=== PATIENT | male | born 1945 | race Caucasian/White ===

== ENCOUNTER 2016-06-08 05:25 | Inpatient (IN) | payer MEDICARE ==
[~2016-06-08] VITALS: Ht 170.2 cm; Wt 124.6 kg
[2016-06-08] VITALS (14 sets, daily range): BP systolic 105–135; BP diastolic 57–76; PULSE 84–133; RESP 18–36; TEMP 98.4–100.8; O2SAT 88–99
[2016-06-08] MEDS ORDERED: AZITHROMYCIN INJ 500 MG in SODIUM CHLOR 0.9% 250 ML INJ 250 ML IV STA (05:37)
[2016-06-08] MEDS ORDERED: SODIUM CHLOR 0.9% 1000 ML INJ 1,000 ML IV ONE ×2 (05:37)
[2016-06-08] MEDS ORDERED: cefTRIAXone INJ 2,000 MG in SODIUM CHLORIDE 0.9% INJ 100 ML IV STA (05:37)
[2016-06-08] MEDS ORDERED: SODIUM CHLOR 0.9% 1000 ML INJ 400 ML IV ONE (05:37)
[2016-06-08] MEDS ORDERED: methylPREDNISolone SOD SUCC 125 MG/2 ML VIAL IV ONE (05:45)
--- NOTE | 2016-06-08 05:47 | PD ---
HPI Chief Complaint: Respiratory Distress Time Seen by Provider: 05:37 Travel History International Travel<30 days: No Contact w/Intl Traveler<30days: No Traveled to known affect area: No History of Present Illness HPI Patient is a 71-year-old male with history of hyperlipidemia who presents to emergency room with complaints of shortness of breath with cough and congestion. Patient reports that he woke up 3 hours prior to arrival to the emergency room and felt short of breath. Patient reports that he began coughing and has been coughing up blood-tinged sputum. Patient reports "I think I have pneumonia." Patient reports that he used the past smoker, has not smoked in many years. Patient denies chest pain at this time. 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 Patient reports that he has been having increased fevers and chills for the past few hours. Patient reports that he was diagnosed with the flu 2 weeks ago, reports that he doesn't think he really got over it. PFSH Past Medical History Medical History: Denies Significant Hx Cardiac Catheterization: Yes Diminished Hearing: No Tetanus Vaccination: Unknown Influenza Vaccination: No Social History Alcohol Use: No Tobacco Use: No Substance Use: No Allergies-Medications (Allergen,Severity, Reaction): Coded Allergies: No Known Allergies (Unverified , 06/08/16) Reported Meds & Prescriptions Reported Meds & Active Scripts Active Active Prescriptions or Reported Medications Unobtainable Review of Systems General / Constitutional: Positive: Fever, Chills Eyes: No: Visual changes HENT: No: Headaches Cardiovascular: No: Chest Pain or Discomfort Respiratory: Positive: Cough, Shortness of Breath, Wheezing Gastrointestinal: No: Nausea, Abdominal Pain Genitourinary: No: Dysuria Musculoskeletal: No: Pain Skin: No Rash Neurologic: No: Weakness Psychiatric: No: Depression Endocrine: No: Polydipsia Hematologic/Lymphatic: No: Easy Bruising Physical Exam Narrative GENERAL: Moderate distress, patient hypoxic with a pulse ox of 88% on room air SKIN: Warm and dry. HEAD: Atraumatic. Normocephalic. EYES: Pupils equal and round. No scleral icterus. No injection or drainage. ENT: No nasal bleeding or discharge. Mucous membranes pink and moist. NECK: Trachea midline. No JVD. CARDIOVASCULAR: Tachycardic. No murmur appreciated. RESPIRATORY: Patient with scattered wheezing bilaterally GASTROINTESTINAL: Abdomen soft, non-tender, nondistended. Hepatic and splenic margins not palpable. MUSCULOSKELETAL: No obvious deformities. No clubbing. No cyanosis. No edema. NEUROLOGICAL: Awake and alert. No obvious cranial nerve deficits. Motor grossly within normal limits. Normal speech. PSYCHIATRIC: Patient anxious on exam Data Data Last Documented VS Vital Signs Date Time Temp Pulse Resp B/P Pulse Ox O2 Delivery O2 Flow Rate FiO2 06/08/16 06:37 123 26 120/74 95 Nasal Cannula 2 06/08/16 05:31 100.8 Orders Electrocardiogram (06/08/16 05:37) Complete Blood Count With Diff (06/08/16 05:37) Comprehensive Metabolic Panel (06/08/16 05:37) Prothrombin Time / Inr (Pt) (06/08/16 05:37) Act Partial Throm Time (Ptt) (06/08/16 05:37) Lactic Acid Sepsis Protocol (06/08/16 05:37) Magnesium (Mg) (06/08/16 05:37) Ckmb (Isoenzyme) Profile (06/08/16 05:37) Troponin I (06/08/16 05:37) Urinalysis - C+S If Indicated (06/08/16 05:37) Influenzae A/B Antigen (06/08/16 05:37) Blood Culture (06/08/16 05:37) Chest, Single Ap (06/08/16 05:37) Blood Glucose (06/08/16 05:37) Ecg Monitoring (06/08/16 05:37) Iv Access Insert/Monitor (06/08/16 05:37) Oximetry (06/08/16 05:37) Oxygen Administration (06/08/16 05:37) Ceftriaxone Inj (Rocephin Inj) (06/08/16 05:37) Azithromycin Inj (Zithromax Inj) (06/08/16 05:37) Albuterol-Ipratropium Neb (Duoneb Neb) (06/08/16 05:45) Methylprednisolone So Succ Inj (Solumedr (06/08/16 05:45) Sodium Chlor 0.9% 1000 Ml Inj (Ns 1000 M (06/08/16 05:37) Sodium Chlor 0.9% 1000 Ml Inj (Ns 1000 M (06/08/16 05:37) Sodium Chlor 0.9% 1000 Ml Inj (Ns 1000 M (06/08/16 05:37) Arterial Blood Gas (Abg) (06/08/16 ) Acetaminophen (Tylenol) (06/08/16 06:00) B-Type Natriuretic Peptide (06/08/16 05:55) CKMB (06/08/16 05:49) CKMB% (06/08/16 05:49) Ct Pulmonary Angiogram (06/08/16 06:27) Labs Laboratory Tests Test 06/08/16 06/08/16 05:49 06:01 White Blood Count 3.6 TH/MM3 Red Blood Count 4.49 MIL/MM3 Hemoglobin 14.9 GM/DL Hematocrit 41.4 % Mean Corpuscular Volume 92.2 FL Mean Corpuscular Hemoglobin 33.1 PG Mean Corpuscular Hemoglobin 35.9 % Concent Red Cell Distribution Width 13.9 % Platelet Count 267 TH/MM3 Mean Platelet Volume 8.4 FL Neutrophils (%) (Auto) 89.1 % Lymphocytes (%) (Auto) 8.2 % Monocytes (%) (Auto) 1.5 % Eosinophils (%) (Auto) 0.5 % Basophils (%) (Auto) 0.7 % Neutrophils # (Auto) 3.2 TH/MM3 Lymphocytes # (Auto) 0.3 TH/MM3 Monocytes # (Auto) 0.1 TH/MM3 Eosinophils # (Auto) 0.0 TH/MM3 Basophils # (Auto) 0.0 TH/MM3 CBC Comment DIFF FINAL Differential Comment Prothrombin Time 11.6 SEC Prothromb Time International 1.0 RATIO Ratio Activated Partial 23.1 SEC Thromboplast Time Sodium Level 140 MEQ/L Potassium Level 3.9 MEQ/L Chloride Level 102 MEQ/L Carbon Dioxide Level 30.8 MEQ/L Anion Gap 7 MEQ/L Blood Urea Nitrogen 14 MG/DL Creatinine 0.98 MG/DL Estimat Glomerular Filtration 75 ML/MIN Rate Random Glucose 178 MG/DL Lactic Acid Level 1.2 mmol/L Calcium Level 8.6 MG/DL Magnesium Level 1.8 MG/DL Total Bilirubin 0.6 MG/DL Aspartate Amino Transf 19 U/L (AST/SGOT) Alanine Aminotransferase 23 U/L (ALT/SGPT) Alkaline Phosphatase 82 U/L Total Creatine Kinase 108 U/L Creatine Kinase MB 1.1 NG/ML Troponin I LESS THAN 0.02 NG/ML Total Protein 7.5 GM/DL Albumin 3.7 GM/DL Blood Gas Puncture Site RT RADIAL Blood Gas Patient Temperature 98.6 Blood Gas HCO3 25 mmol/L Blood Gas Base Excess 1.4 mmol/L Blood Gas Oxygen Saturation 92 % Arterial Blood pH 7.43 Arterial Blood Partial 39 mmHg Pressure CO2 Arterial Blood Partial 63 mmHG Pressure O2 Arterial Blood Oxygen Content 16.1 Vol % Arterial Blood 1.1 % Carboxyhemoglobin Arterial Blood Methemoglobin 0.6 % Blood Gas Hemoglobin 12.5 G/DL Oxygen Delivery Device ROOM AIR Blood Gas Inspired Oxygen 21 % MDM Medical Decision Making Medical Screen Exam Complete: Yes Emergency Medical Condition: Yes Interpretation(s) EKG at 0535: Sinus tachycardia at 129 beats a minute, QT/QTc 281/357 Vital Signs Date Time Temp Pulse Resp B/P Pulse Ox O2 Delivery O2 Flow Rate FiO2 06/08/16 05:36 128 36 88 Room Air 06/08/16 05:31 100.8 133 36 132/71 88 06/08/16 05:27 99.9 132 20 130/67 88 Differential Diagnosis COPD exacerbation, pneumonia, influenza, ACS, arrhythmia, pneumothorax Narrative Course Patient is a 71-year-old male who presents to emergency room with complaints of cough, congestion, fevers and chills for the past 3 hours. On exam, patient is hypoxic with a pulse ox of 88% on room air. Patient has increased respiratory as well as tachycardia and is febrile. Patient does have SIRS criteria. Patient has been pancultured, will give dose of Rocephin as well as azithromycin as I do think that source of infection is his lungs. Patient was given a 30 cc/kg bolus of fluids. Patient does have scattered wheezing, patient was given IV steroids as well as neb treatments. We'll continue to monitor patient. Critical Care Narrative Aggregate critical care time was 30 minutes. Time to perform other separately billable procedures was not included in the critical care time. My time did not include minutes spent treating any other patients simultaneously or on activities that did not directly contribute to the patient's treatment. The services I provided to this patient were to treat and/or prevent clinically significant deterioration that could result in: , decompensation, deterioration I provided critical care services requiring my management, as noted below: Chart data review, documentation time, medication orders and management, vital sign assessments/reviewing monitor data, ordering and reviewing lab tests, ordering and interpreting/reviewing x-rays and diagnostic studies, care of the patient and discussion of the patient with the admitting physicians. Sepsis Criteria SIRS Criteria (2 or more): Temp > 100.9 or < 96.8, Heart rate over 90, RR > 20 or PaCO2 < 32 Sepsis Criteria (SIRS+source): Infect source susp/known Diagnosis Primary Impression: Hypoxia Additional Impressions: Pneumonia Qualified Code: J18.1 - Pneumonia of right middle lobe due to infectious organism SIRS (systemic inflammatory response syndrome) Admitting Information Admitting Physician Requests: Admit Scripts Unable to Obtain Active Prescriptions or Reported Meds Dayna Matthew DO Jun 08, 2016 05:47
[2016-06-08] MEDS: RESP: ALBUTEROL 2.5 MG/IPRATROPIUM 0.5 MG NEB (SCH) INH (05:48)
[2016-06-08] MEDS ORDERED: ACETAMINOPHEN 325 MG TAB PO ONE (06:00)
[2016-06-08 06:01] LABS: AUTOMATED NEUTROPHIL # 3.2 TH/MM3 (1.8-7.7); BASOPHIL % 0.7 % (0.0-2.0); EOSINOPHIL % 0.5 % (0.0-4.0); HEMATOCRIT 41.4 % (39.0-51.0); HEMO FLAGS DIFF FINAL; LYMPH % 8.2 % (9.0-44.0); LYMPHOCYTE # 0.3 TH/MM3 (1.0-4.8); MEAN CELL VOLUME 92.2 FL (80.0-100.0); MEAN CORPUSCULAR HEMOGLOBIN 33.1 PG (27.0-34.0); MEAN CORPUSCULAR HGB CONC 35.9 % (32.0-36.0); MONO % 1.5 % (0.0-8.0); NEUT % 89.1 % (16.0-70.0); PLATELET COUNT 267 TH/MM3 (150-450); RED BLOOD COUNT 4.49 MIL/MM3 (4.50-5.90); RED CELL DISTRIBUTION WIDTH 13.9 % (11.6-17.2); WHITE BLOOD COUNT 3.6 TH/MM3 (4.0-11.0)
[2016-06-08 06:13] LABS: APTT (PATIENT) 23.1 SEC (24.3-30.1); PROTHROMBIN TIME - PATIENT 11.6 SEC (9.8-11.6)
[2016-06-08 06:18] LABS: BLOOD GAS BASE EXCESS 1.4 mmol/L (-2-2); BLOOD GAS CARBOXYHEMOGLOBIN 1.1 % (0-4); BLOOD GAS HCO3 25 mmol/L (22-26); BLOOD GAS METHEMOGLOBIN 0.6 % (0-2); BLOOD GAS O2 HGB SATURATION 92 % (90-100); BLOOD GAS OXYGEN CONTENT 16.1 Vol % (12.0-20.0); BLOOD GAS PCO2 39 mmHg (38-42); BLOOD GAS PO2 63 mmHG (61-120); BLOOD GAS TOTAL HGB 12.5 G/DL (12.0-16.0); CRITICAL VALUE NO; DRAW SITE RT RADIAL; FIO2 21 %; NUMBER OF ARTERIAL PUNCTURES 2; OXYGEN DEVICE ROOM AIR; STAT YES; TEMP CORR TO 98.6; ULNAR PULSE PRESENT
[2016-06-08 06:20] LABS: ANION GAP 7 MEQ/L (5-15); AST (GOT) 19 U/L (15-37); BICARBONATE 30.8 MEQ/L (21.0-32.0); BLOOD UREA NITROGEN 14 MG/DL (7-18); CHLORIDE 102 MEQ/L (98-107); GLOMERULAR FILTRATION RATE 75 ML/MIN (>89); MAGNESIUM 1.8 MG/DL (1.5-2.5); POTASSIUM 3.9 MEQ/L (3.5-5.1); SODIUM (NA) 140 MEQ/L (136-145)
[2016-06-08 06:24] LABS: ALKALINE PHOSPHATASE 82 U/L (45-117); ALT (GPT) 23 U/L (12-78); CREATINE KINASE 108 U/L (39-308); TOTAL BILIRUBIN ADULT 0.6 MG/DL (0.2-1.0)
--- NOTE | 2016-06-08 06:42 | RADRPT ---
EXAM DATE/TIME: 06/08/2016 06:30 [facility] COMPARISON: No previous studies available for comparison. INDICATIONS : Shortness of breath. MEDICAL HISTORY : None. SURGICAL HISTORY : None. ENCOUNTER: Initial ACUITY: 1 day PAIN SCORE: 0/10 LOCATION: Bilateral chest FINDINGS: Single AP view of the chest. Large area of pulmonary consolidation in the mid to upper lung zone on t he right. Left lung clear. Cardiomediastinal silhouette within normal limits. No evidence of pleural effusion or pneumothorax. CONCLUSION: Large area of right mid to upper lung consolidation. Stuart Santos MD on June 08, 2016 at 6:39 Board Certified Radiologist. This report was verified electronically.
[2016-06-08 06:50] LABS: CKMB 1.1 NG/ML (0.5-3.6)
[2016-06-08] MEDS ORDERED: IOHEXOL 350 MG/ML 10 ML VIAL (for RAD DIAG) IV ONE (06:57)
--- NOTE | 2016-06-08 07:09 | PD ---
Physical Exam Date Seen by Provider: Jun 08, 2016 Time Seen by Provider: 07:07 Narrative The patient is a 71-year-old male who presents to the emergency department for shortness of breath, was evaluated by the previous physician. Please refer to the initial history, physical, diagnostic evaluation, and treatment modality plan. The patient was signed out at [address] the chest and laboratory evaluation pending. The patient was noted to be febrile with what appeared to be a consolidated area on the chest x-ray, right lung. The patient was administered Rocephin and Zithromax by the previous physician. The patient was noted to be hypoxic and febrile. Data Data Last Documented VS Vital Signs Date Time Temp Pulse Resp B/P Pulse Ox O2 Delivery O2 Flow Rate FiO2 06/08/16 06:37 123 26 120/74 95 Nasal Cannula 2 06/08/16 05:31 100.8 Orders Electrocardiogram (06/08/16 05:37) Complete Blood Count With Diff (06/08/16 05:37) Comprehensive Metabolic Panel (06/08/16 05:37) Prothrombin Time / Inr (Pt) (06/08/16 05:37) Act Partial Throm Time (Ptt) (06/08/16 05:37) Lactic Acid Sepsis Protocol (06/08/16 05:37) Magnesium (Mg) (06/08/16 05:37) Ckmb (Isoenzyme) Profile (06/08/16 05:37) Troponin I (06/08/16 05:37) Urinalysis - C+S If Indicated (06/08/16 05:37) Influenzae A/B Antigen (06/08/16 05:37) Blood Culture (06/08/16 05:37) Chest, Single Ap (06/08/16 05:37) Blood Glucose (06/08/16 05:37) Ecg Monitoring (06/08/16 05:37) Iv Access Insert/Monitor (06/08/16 05:37) Oximetry (06/08/16 05:37) Oxygen Administration (06/08/16 05:37) Ceftriaxone Inj (Rocephin Inj) (06/08/16 05:37) Azithromycin Inj (Zithromax Inj) (06/08/16 05:37) Albuterol-Ipratropium Neb (Duoneb Neb) (06/08/16 05:45) Methylprednisolone So Succ Inj (Solumedr (06/08/16 05:45) Sodium Chlor 0.9% 1000 Ml Inj (Ns 1000 M (06/08/16 05:37) Sodium Chlor 0.9% 1000 Ml Inj (Ns 1000 M (06/08/16 05:37) Sodium Chlor 0.9% 1000 Ml Inj (Ns 1000 M (06/08/16 05:37) Arterial Blood Gas (Abg) (06/08/16 ) Acetaminophen (Tylenol) (06/08/16 06:00) B-Type Natriuretic Peptide (06/08/16 05:55) CKMB (06/08/16 05:49) CKMB% (06/08/16 05:49) Ct Pulmonary Angiogram (06/08/16 06:27) Iohexol 350 Inj (Omnipaque 350 Inj) (06/08/16 06:57) Admit To Inpatient (06/08/16 ) Vital Signs (Adult) Q4H (06/08/16 07:33) Activity Oob Ad Courtney (06/08/16 07:33) 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 .CONTINUOUS (06/08/16 07:33) Intake + Output YISEL.QSHIFT (06/08/16 07:33) Diet Heart Healthy (06/08/16 Breakfast) Sodium Chlor 0.9% 1000 Ml Inj (Ns 1000 M (06/08/16 07:33) Sodium Chloride 0.9% Flush (Ns Flush) (06/08/16 07:45) Sodium Chloride 0.9% Flush (Ns Flush) (06/08/16 09:00) Acetaminophen (Tylenol) (06/08/16 07:45) Ondansetron Inj (Zofran Inj) (06/08/16 07:45) Magnesium Hydroxide Liq (Milk Of Magnesi (06/08/16 07:45) Resp Oxygen Liam C Titrat 1-4 L (06/08/16 ) Enoxaparin Inj (Lovenox Inj) (06/08/16 07:45) Naloxone Inj (Narcan Inj) (06/08/16 07:45) Inpatient Certification (06/08/16 ) Ceftriaxone Inj (Rocephin Inj) (06/09/16 06:00) Azithromycin Inj (Zithromax Inj) (06/09/16 06:00) Albuterol-Ipratropium Neb (Duoneb Neb) (06/08/16 08:00) Albuterol Neb (Albuterol Neb) (06/08/16 07:45) Methylprednisolone So Succ Inj (Solumedr (06/08/16 12:00) Admit Order (Ed Use Only) (06/08/16 07:40) Labs Laboratory Tests Test 06/08/16 06/08/16 05:49 06:01 White Blood Count 3.6 TH/MM3 Red Blood Count 4.49 MIL/MM3 Hemoglobin 14.9 GM/DL Hematocrit 41.4 % Mean Corpuscular Volume 92.2 FL Mean Corpuscular Hemoglobin 33.1 PG Mean Corpuscular Hemoglobin 35.9 % Concent Red Cell Distribution Width 13.9 % Platelet Count 267 TH/MM3 Mean Platelet Volume 8.4 FL Neutrophils (%) (Auto) 89.1 % Lymphocytes (%) (Auto) 8.2 % Monocytes (%) (Auto) 1.5 % Eosinophils (%) (Auto) 0.5 % Basophils (%) (Auto) 0.7 % Neutrophils # (Auto) 3.2 TH/MM3 Lymphocytes # (Auto) 0.3 TH/MM3 Monocytes # (Auto) 0.1 TH/MM3 Eosinophils # (Auto) 0.0 TH/MM3 Basophils # (Auto) 0.0 TH/MM3 CBC Comment DIFF FINAL Differential Comment Prothrombin Time 11.6 SEC Prothromb Time International 1.0 RATIO Ratio Activated Partial 23.1 SEC Thromboplast Time Sodium Level 140 MEQ/L Potassium Level 3.9 MEQ/L Chloride Level 102 MEQ/L Carbon Dioxide Level 30.8 MEQ/L Anion Gap 7 MEQ/L Blood Urea Nitrogen 14 MG/DL Creatinine 0.98 MG/DL Estimat Glomerular Filtration 75 ML/MIN Rate Random Glucose 178 MG/DL Lactic Acid Level 1.2 mmol/L Calcium Level 8.6 MG/DL Magnesium Level 1.8 MG/DL Total Bilirubin 0.6 MG/DL Aspartate Amino Transf 19 U/L (AST/SGOT) Alanine Aminotransferase 23 U/L (ALT/SGPT) Alkaline Phosphatase 82 U/L Total Creatine Kinase 108 U/L Creatine Kinase MB 1.1 NG/ML Troponin I LESS THAN 0.02 NG/ML Total Protein 7.5 GM/DL Albumin 3.7 GM/DL Blood Gas Puncture Site RT RADIAL Blood Gas Patient Temperature 98.6 Blood Gas HCO3 25 mmol/L Blood Gas Base Excess 1.4 mmol/L Blood Gas Oxygen Saturation 92 % Arterial Blood pH 7.43 Arterial Blood Partial 39 mmHg Pressure CO2 Arterial Blood Partial 63 mmHG Pressure O2 Arterial Blood Oxygen Content 16.1 Vol % Arterial Blood 1.1 % Carboxyhemoglobin Arterial Blood Methemoglobin 0.6 % Blood Gas Hemoglobin 12.5 G/DL Oxygen Delivery Device ROOM AIR Blood Gas Inspired Oxygen 21 % [facility] Medical Record Reviewed: Yes Supervised Visit with RYLEE: No Interpretation(s) EKG reveals sinus tachycardia with a heart rate of 129. Low QRS voltage in precordial leads. Date/Time Procedure Status Source Growth 06/08/16 05:40 Influenza Types A,B Antigen (GENARO) - Final Complete Nasal Aspirate NEGATIVE FOR FLU A AND B ANTIGEN.... 06/08/16 05:45 Aerobic Blood Culture Received Blood Peripheral Pending 06/08/16 05:45 Anaerobic Blood Culture Received Blood Peripheral Pending 06/08/16 05:50 Aerobic Blood Culture Received Blood Peripheral Pending 06/08/16 05:50 Anaerobic Blood Culture Received Blood Peripheral Pending Laboratory Tests Test 06/08/16 06/08/16 05:49 06:01 White Blood Count 3.6 TH/MM3 Red Blood Count 4.49 MIL/MM3 Hemoglobin 14.9 GM/DL Hematocrit 41.4 % Mean Corpuscular Volume 92.2 FL Mean Corpuscular Hemoglobin 33.1 PG Mean Corpuscular Hemoglobin 35.9 % Concent Red Cell Distribution Width 13.9 % Platelet Count 267 TH/MM3 Mean Platelet Volume 8.4 FL Neutrophils (%) (Auto) 89.1 % Lymphocytes (%) (Auto) 8.2 % Monocytes (%) (Auto) 1.5 % Eosinophils (%) (Auto) 0.5 % Basophils (%) (Auto) 0.7 % Neutrophils # (Auto) 3.2 TH/MM3 Lymphocytes # (Auto) 0.3 TH/MM3 Monocytes # (Auto) 0.1 TH/MM3 Eosinophils # (Auto) 0.0 TH/MM3 Basophils # (Auto) 0.0 TH/MM3 CBC Comment DIFF FINAL Differential Comment Prothrombin Time 11.6 SEC Prothromb Time International 1.0 RATIO Ratio Activated Partial 23.1 SEC Thromboplast Time Sodium Level 140 MEQ/L Potassium Level 3.9 MEQ/L Chloride Level 102 MEQ/L Carbon Dioxide Level 30.8 MEQ/L Anion Gap 7 MEQ/L Blood Urea Nitrogen 14 MG/DL Creatinine 0.98 MG/DL Estimat Glomerular Filtration 75 ML/MIN Rate Random Glucose 178 MG/DL Lactic Acid Level 1.2 mmol/L Calcium Level 8.6 MG/DL Magnesium Level 1.8 MG/DL Total Bilirubin 0.6 MG/DL Aspartate Amino Transf 19 U/L (AST/SGOT) Alanine Aminotransferase 23 U/L (ALT/SGPT) Alkaline Phosphatase 82 U/L Total Creatine Kinase 108 U/L Creatine Kinase MB 1.1 NG/ML Troponin I LESS THAN 0.02 NG/ML Total Protein 7.5 GM/DL Albumin 3.7 GM/DL Blood Gas Puncture Site RT RADIAL Blood Gas Patient Temperature 98.6 Blood Gas HCO3 25 mmol/L Blood Gas Base Excess 1.4 mmol/L Blood Gas Oxygen Saturation 92 % Arterial Blood pH 7.43 Arterial Blood Partial 39 mmHg Pressure CO2 Arterial Blood Partial 63 mmHG Pressure O2 Arterial Blood Oxygen Content 16.1 Vol % Arterial Blood 1.1 % Carboxyhemoglobin Arterial Blood Methemoglobin 0.6 % Blood Gas Hemoglobin 12.5 G/DL Oxygen Delivery Device ROOM AIR Blood Gas Inspired Oxygen 21 % CT pulmonary angiogram reveals no evidence for PE. Right lung pneumonia. Hiatal hernia and a right adrenal mass which is nonspecific. Chest x-ray reveals large area of right mid to upper lung consolidation. Differential Diagnosis Differential diagnosis includes pneumonia, lung mass, pulmonary embolism, bronchitis, pleural effusion, acute coronary syndrome, COPD exacerbation. Narrative Course The patient is a 71-year-old male was initially evaluated by the previous physician. Please refer to the initial history, physical, diagnostic evaluation, treatment modality plan. The patient was noted to be hypoxic on room air 88% with consolidated area on the right lung consistent with pneumonia. The patient had blood cultures obtained and was prescribed Rocephin and Zithromax. Chest x-ray reveals mid to upper lobe pneumonia, CT pulmonary angiogram is negative for PE but reveals large area of pneumonia in the right lung. The patient is from out of town, therefore, the on-call medical service was paged for admission as patient is hypoxic with multilobar pneumonia. Sepsis Criteria SIRS Criteria (2 or more): Heart rate over 90 Sepsis Criteria (SIRS+source): Infect source susp/known Physician Communication Physician Communication The on-call medical service was paged for admission. I discussed the patient with Dr. Saunders who agrees with admission. Diagnosis Primary Impression: Hypoxia Additional Impressions: SIRS (systemic inflammatory response syndrome) Pneumonia Qualified Code: J18.1 - Pneumonia of right middle lobe due to infectious organism Admitting Information Admitting Physician Requests: Admit Scripts Unable to Obtain Active Prescriptions or Reported Meds Condition: Stable [place] MD Jun 08, 2016 07:09
--- NOTE | 2016-06-08 07:11 | RADRPT ---
EXAM DATE/TIME: 06/08/2016 06:55 [facility] COMPARISON: CHEST SINGLE AP, June 08, 2016, 6:30. INDICATIONS : Cough and congestion. evaluate for pulmonary emoblism IV CONTRAST: 50 cc Omnipaque 350 (iohexol) IV RADIATION DOSE: 23.06 CTDIvol (mGy) MEDICAL HISTORY : Prostate cancer SURGICAL HISTORY : Prostatectomy. ENCOUNTER: Initial ACUITY: 2 days PAIN SCALE: 4/10 LOCATION: chest TECHNIQUE: Volumetric scanning of the chest was performed using a pulmonary embolism protocol MIP images were re constructed. Using automated exposure control and adjustment of the mA and/or kV according to patien t size, radiation dose was kept as low as reasonably achievable to obtain optimal diagnostic quality images. FINDINGS: The examination is limited due to motion artifact. There is no evidence for PE for technique. Th ere is dense airspace consolidation in the right upper lobe and parts of the right lower lobe most li marco a pneumonia. Tiny right pleural effusion is seen. Hiatal hernia is present. in approximate 2.9 cm mass is present in the right adrenal gland. CONCLUSION: 1. There is no evidence for PE for technique. 2. Right lung pneumonia. 3. Hiatal hernia and a right adrenal mass which is nonspecific. Sherrill Bah MD on June 08, 2016 at 7:07 Board Certified Radiologist. This report was verified electronically.
[2016-06-08] MEDS ORDERED: MAGNESIUM HYDROXIDE SUSP 30 ML CUP PO PRN (07:45)
[2016-06-08] MEDS ORDERED: NALOXONE HCL 0.4 MG/ML AMP IV PRN (07:45)
[2016-06-08] MEDS ORDERED: SODIUM CHLORIDE 0.9% FLUSH 5 ML FLUSH FLUSH PRN (07:45)
[2016-06-08] MEDS ORDERED: RESP: ALBUTEROL 1.25 MG/3 ML NEB (PRN) NEB (07:45)
[2016-06-08] MEDS ORDERED: ONDANSETRON HCL 4 MG/2 ML VIAL IVP PRN (07:45)
[2016-06-08] MEDS ORDERED: ACETAMINOPHEN 325 MG TAB PO PRN (07:45)
[2016-06-08] MEDS: RESP: ALBUTEROL 2.5 MG/IPRATROPIUM 0.5 MG NEB (SCH) NEB ×4 (08:18→20:51)
[2016-06-08] MEDS: ENOXAPARIN SODIUM 40 MG/0.4 ML SYRINGE SQ SCH (08:41)
[2016-06-08] MEDS: SODIUM CHLORIDE 0.9% FLUSH 5 ML FLUSH FLUSH SCH ×2 (08:41→22:06)
[2016-06-08] MEDS: SODIUM CHLOR 0.9% 1000 ML INJ 1,000 ML IV SCH ×2 (08:41→17:33)
[2016-06-08 09:17] LABS: BLOOD, URINE NEG (NEG); COMMENT (UR) CULT NOT INDICATED; CULTURE IF INDICATED CULT NOT INDICATED; GLUCOSE,URINE NEG (NEG); KETONE, URINE NEG (NEG); MUCUS URINE FEW /lpf (OCC); NITRITE,URINE NEG (NEG); URINE COLOR YELLOW (YELLW/STRAW)
--- NOTE | 2016-06-08 10:00 | HHI.HP ---
[facility] Service [place] [facility] Primary Care Physician Non-Staff Admission Diagnosis multilobar pneumonia, hypoxia, tachycardia, hemoptysis Diagnoses: Chief Complaint: SOb and fever Travel History International Travel<30 Days: No Contact w/Intl Traveler <30 Da: No Traveled to Known Affected Are: No History of Present Illness 71 y/o M with PMHx of CAD s/p stent placement who p/w SOB and fever X 1 day. Patient stated that he drove down from [place] for bike week and stayed in last night. At 3am he woke up with SOB and wheezing. He stated a friend of his who is a nurse heard him wheezing and he felt warm so she gave him Tylenol. They then went to the ED. Patient stated 2 weeks prior he had the flu and he was treated for that. He stated he thought he did well after that but felt fatigue the past few days. No other complaints. No hx of COPD. Patient smoked 2-3 PPD for 20 years but stopped tobacco use 11 years ago when he had stent placement. + productive cough. Review of Systems Constitutional: COMPLAINS OF: Fever, DENIES: Diaphoretic episodes, Fatigue, Weight gain, Weight loss, Chills, Dizziness, Change in appetite, Night Sweats Endocrine: DENIES: Heat/cold intolerance, Polydipsia, Polyuria, Polyphagia Eyes: DENIES: Blurred vision, Diplopia, Eye inflammation, Eye pain, Vision loss , Photosensitivity, Double Vision Ears, nose, mouth, throat: DENIES: Tinnitus, Hearing loss, Vertigo, Nasal discharge, Oral lesions, Throat pain, Hoarseness, Ear Pain, Running Nose, Epistaxis, Sinus Pain, Toothache, Odynophagia Respiratory: COMPLAINS OF: Cough, Wheezing, Sputum production, Shortness of breath, DENIES: Apneas, Snoring, Hemoptysis Cardiovascular: DENIES: Chest pain, Palpitations, Syncope, Dyspnea on Exertion , PND, Lower Extremity Edema, Orthopnea, Claudication Gastrointestinal: DENIES: Abdominal pain, Black stools, Bloody stools, Constipation, Diarrhea, Nausea, Vomiting, Difficulty Swallowing, Anorexia Genitourinary: DENIES: Sexual dysfunction, Urinary frequency, Urinary incontinence, Urgency, Hematuria, Dysuria, Nocturia, Penile Discharge, Testicular Pain, Testicular Swelling Musculoskeletal: DENIES: Joint pain, Muscle aches, Stiffness, Joint Swelling, Back pain, Neck pain Integumentary: DENIES: Abnormal pigmentation, Nail changes, Pruritus, Rash Hematologic/lymphatic: DENIES: Bruising, Lymphadenopathy Immunologic/allergic: DENIES: Eczema, Urticaria Neurologic: DENIES: Abnormal gait, Headache, Localized weakness, Paresthesias, Seizures, Speech Problems, Tremor, Poor Balance Psychiatric: DENIES: Anxiety, Confusion, Mood changes, Depression, Hallucinations, Agitation, Suicidal Ideation, Homicidal Ideation, Delusions Past Family Social History Past Medical History CAD HLP hx of T2DM and HTN that resolved after gastric bypass. hx of multiple Pneumonias. hx of prostate cancer in remission Past Surgical History stent placement in 2005 gastric bypass in 2009 Reported Medications simvastatin 40 mh PO HS ASA 81 mg PO daily creon Allergies: Coded Allergies: No Known Allergies (Unverified , 06/08/16) Active Ordered Medications Current Medications Ceftriaxone Sodium 2000 mg/ Sodium Chloride 100 ml @ 200 mls/hr ONCE STAT IV Last administered on 06/08/16 05:55; Start 06/08/16 at 05:37; Stop 06/08/16 at 06:06; Status DC Azithromycin/ Sodium Chloride (Zithromax Inj/ NS 250 ml Inj) 250 ml @ 250 mls/ hr ONCE STAT IV Last administered on 06/08/16 05:55; Start 06/08/16 at 05:37 ; Stop 06/08/16 at 06:36; Status DC Albuterol/ Ipratropium (Duoneb Neb) 1 ampule Q15M INH Last administered on 06/08 05:48; Start 06/08/16 at 05:45; Stop 06/08/16 at 06:16; Status DC Methylprednisolone Sodium Succinate 125 mg 125 mg ONCE ONCE IV Last administered on 06/08/16 05:56; Start 06/08/16 at 05:45; Stop 06/08/16 at 05:46 ; Status DC Sodium Chloride 1,000 ml @ 1,000 mls/hr Q1H ONCE IV Last administered on 05:54; Start 06/08/16 at 05:37; Stop 06/08/16 at 06:36; Status DC Sodium Chloride 1,000 ml @ 1,000 mls/hr Q1H ONCE IV Last administered on 05:55; Start 06/08/16 at 05:37; Stop 06/08/16 at 06:36; Status DC Sodium Chloride (NS 1000 ml Inj) 400 ml @ 1,000 mls/hr Q24M ONCE IV Last administered on 06/08/16 06:39; Start 06/08/16 at 05:37; Stop 06/08/16 at 06:00 ; Status DC Acetaminophen (Tylenol) 650 mg ONCE ONCE PO Last administered on 06/08/16 05: 56; Start 06/08/16 at 06:00; Stop 06/08/16 at 06:01; Status DC Iohexol 50 ml 50 ml STK-MED ONCE IV Last administered on 06/08/16 06:57; Start 06/08/16 at 06:57; Stop 06/08/16 at 06:58; Status DC Sodium Chloride (NS 1000 ml Inj) 1,000 ml @ 100 mls/hr Q10H IV Last administered on 06/08/16 08:41; Start 06/08/16 at 07:33 IV Flush (NS Flush) 2 ml UNSCH PRN FLUSH FLUSH AFTER USING IV ACCESS; Start at 07:45 IV Flush (NS Flush) 2 ml BID FLUSH ; Start 06/08/16 at 09:00 Acetaminophen (Tylenol) 650 mg Q4H PRN PO TEMP > 100.4; Start 06/08/16 at 07:45 Ondansetron HCl (Zofran Inj) 4 mg Q6H PRN IVP NAUSEA OR VOMITING; Start at 07:45 Magnesium Hydroxide (Milk Of Magnesia Liq) 30 ml Q12H PRN PO CONSTIPATION; Start 06/08/16 at 07:45 Enoxaparin Sodium (Lovenox Inj) 40 mg Q24H SQ Last administered on 06/08/16 08 :41; Start 06/08/16 at 08:00 Naloxone HCl 0.4 mg 0.4 mg UNSCH PRN IV SEE LABEL COMMENTS; Start 06/08/16 at 07:45 Ceftriaxone Sodium 1000 mg/ Sodium Chloride 100 ml @ 200 mls/hr Q24H IV ; Start 06/09/16 at 06:00 Azithromycin/ Sodium Chloride (Zithromax Inj/ NS 250 ml Inj) 250 ml @ 250 mls/ hr Q24H IV ; Start 06/09/16 at 05:00 Albuterol/ Ipratropium (Duoneb Neb) 1 ampule Q4HR NEB NEB Last administered on 06/08/16t 08:18; Start 06/08/16 at 08:00 Albuterol Sulfate (Albuterol Neb) 1.25 mg Q6HR NEB PRN NEB SHORTNESS OF BREATH ; Start 06/08/16 at 07:45 Methylprednisolone Sodium Succinate (SoluMEDROL INJ) 60 mg Q6HR IV PUSH ; Start 06/08/16 at 12:00 Family History noncontributory Social History patient lives in [place]. 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 denied any alcohol use for 30 years. denied any illicit drug use. Physical Exam Vital Signs Vital Signs Date Time Temp Pulse Resp B/P Pulse Ox O2 Delivery O2 Flow Rate FiO2 06/08/16 08:19 95 Nasal Cannula 2.00 06/08/16 06:37 123 26 120/74 95 Nasal Cannula 2 06/08/16 05:41 34 93 Nasal Cannula 2 06/08/16 05:41 88 Room Air 06/08/16 05:36 128 36 88 Room Air 06/08/16 05:31 100.8 133 36 132/71 88 06/08/16 05:27 99.9 132 20 130/67 88 Physical Exam GENERAL: This is a well-nourished, well-developed patient, in mild respiratory distress. SKIN: No rashes, ecchymoses or lesions. Cool and dry. HEAD: Atraumatic. Normocephalic. No temporal or scalp tenderness. EYES: Pupils equal round and reactive. Extraocular motions intact. No scleral icterus. No injection or drainage. ENT: Nose without bleeding, purulent drainage or septal hematoma. Throat without erythema, tonsillar hypertrophy or exudate. Uvula midline. Airway patent. NECK: Trachea midline. No JVD or lymphadenopathy. Supple, nontender, no meningeal signs. CARDIOVASCULAR: Regular rate and rhythm without murmurs, gallops, or rubs. RESPIRATORY: + right sided rhonchi. no wheezing or crackles noted. GASTROINTESTINAL: Abdomen soft, non-tender, nondistended. No hepato-splenomegaly , or palpable masses. No guarding. MUSCULOSKELETAL: Extremities without clubbing, cyanosis, or edema. No joint tenderness, effusion, or edema noted. No calf tenderness. Negative Homans sign bilaterally. NEUROLOGICAL: Awake and alert. Cranial nerves II through XII intact. Motor and sensory grossly within normal limits. Five out of 5 muscle strength in all muscle groups. Normal speech. Laboratory Laboratory Tests Test 06/08/16 06/08/16 05:49 06:01 White Blood Count 3.6 Red Blood Count 4.49 Hemoglobin 14.9 Hematocrit 41.4 Mean Corpuscular Volume 92.2 Mean Corpuscular Hemoglobin 33.1 Mean Corpuscular Hemoglobin 35.9 Concent Red Cell Distribution Width 13.9 Platelet Count 267 Mean Platelet Volume 8.4 Neutrophils (%) (Auto) 89.1 Lymphocytes (%) (Auto) 8.2 Monocytes (%) (Auto) 1.5 Eosinophils (%) (Auto) 0.5 Basophils (%) (Auto) 0.7 Neutrophils # (Auto) 3.2 Lymphocytes # (Auto) 0.3 Monocytes # (Auto) 0.1 Eosinophils # (Auto) 0.0 Basophils # (Auto) 0.0 CBC Comment DIFF FINAL Differential Comment Prothrombin Time 11.6 Prothromb Time International 1.0 Ratio Activated Partial 23.1 Thromboplast Time Sodium Level 140 Potassium Level 3.9 Chloride Level 102 Carbon Dioxide Level 30.8 Anion Gap 7 Blood Urea Nitrogen 14 Creatinine 0.98 Estimat Glomerular Filtration 75 Rate Random Glucose 178 Lactic Acid Level 1.2 Calcium Level 8.6 Magnesium Level 1.8 Total Bilirubin 0.6 Aspartate Amino Transf 19 (AST/SGOT) Alanine Aminotransferase 23 (ALT/SGPT) Alkaline Phosphatase 82 Total Creatine Kinase 108 Creatine Kinase MB 1.1 Troponin I LESS THAN 0.02 B-Type Natriuretic Peptide 9 Total Protein 7.5 Albumin 3.7 Blood Gas Puncture Site RT RADIAL Blood Gas Patient Temperature 98.6 Blood Gas HCO3 25 Blood Gas Base Excess 1.4 Blood Gas Oxygen Saturation 92 Arterial Blood pH 7.43 Arterial Blood Partial 39 Pressure CO2 Arterial Blood Partial 63 Pressure O2 Arterial Blood Oxygen Content 16.1 Arterial Blood 1.1 Carboxyhemoglobin Arterial Blood Methemoglobin 0.6 Blood Gas Hemoglobin 12.5 Oxygen Delivery Device ROOM AIR Blood Gas Inspired Oxygen 21 Date/Time Procedure Status Source Growth 06/08/16 05:50 Aerobic Blood Culture Received Blood Peripheral Pending 06/08/16 05:50 Anaerobic Blood Culture Received Blood Peripheral Pending 06/08/16 05:40 Influenza Types A,B Antigen (GENARO) - Final Complete Nasal Aspirate NEGATIVE FOR FLU A AND B ANTIGEN.... Result Diagram: 06/08/1654806/08/[address] Angiography 06/08/16626 Signed Impressions: Service Date/Time: Wednesday, June 08, 2016 06:55 - CONCLUSION: 1. There is no evidence for PE for technique. 2. Right lung pneumonia. 3. Hiatal hernia and a right adrenal mass which is nonspecific. KRoxana Bah MD Chest X-Ray 06/08/16536 Signed Impressions: Service Date/Time: Wednesday, June 08, 2016 06:30 - CONCLUSION: Large area of right mid to upper lung consolidation. Stuart Santos MD Assessment and Plan Assessment and Plan 71 y/o M with hx of CAD Right upper and middle lobe PNA -patient given dose of Rocephin and azithromycin. will continue with current regimen to cover CAP. -PNA is extensive with recent flu treatment. He most likely need a few days of antibiotics treatment. Sepsis -+ tachycardia and fever. + infectious source PNA. -see treatment as above. -start IVFs. -continue to monitor clinically. questionable COPD -patient was treated with solumedrol and neb due to wheezing in ED. -he has no hx of COPD but does have hx of tobacco use. -I do not hear any wheezing but rhonchi at the moment so unsure. -will continue with current regimen. Treat the PNA, continue schedule solumedrol and duonebs. -will wean off solumedrol tomorrow if no wheezing is noted. right adrenal mass -incidental finding on CT scan. -can be worked up as outpatient. CAD -resume home medication. DVT -lovenox Code Status full Discussed Condition With patient and his partner who is at the bedside. Physician Certification 2 Midnight Certification Type: Admission for Inpatient Services Order for Inpatient Services The services are ordered in accordance with Medicare regulations or non- Medicare payer requirements, as applicable. In the case of services not specified as inpatient-only, they are appropriately provided as inpatient services in accordance with the 2-midnight benchmark. Estimated LOS (days): 3 3 days is the estimated time the patient will need to remain in the hospital, assuming treatment plan goals are met and no additional complications. Post-Hospital Plan: Pili Queen MD Jun 08, 2016 10:00
[2016-06-08] MEDS ORDERED: SIMV40TA PO (12:20)
[2016-06-08] MEDS ORDERED: CREON24 PO ×2 (12:20)
[2016-06-08] MEDS: methylPREDNISolone SOD SUCC 125 MG/2 ML VIAL IV PUSH SCH ×2 (12:57→18:41)
[2016-06-08] MEDS ORDERED: ZINC50TA PO (15:24)
[2016-06-08] MEDS ORDERED: IRON18TA2 PO (15:24)
[2016-06-08] MEDS ORDERED: CENTTAB PO (15:24)
[2016-06-08] MEDS ORDERED: TYLE325T PO (15:24)
[2016-06-08] MEDS ORDERED: BIOT10TA PO (15:24)
[2016-06-08] MEDS ORDERED: CHOL20005 PO (15:24)
[2016-06-08] MEDS ORDERED: B12-1CHW PO (15:24)
[2016-06-08] MEDS ORDERED: LIPASE/PROTEASE/AMYLASE (24,000/76,000/120,000) CAP PO PRN (17:45)
[2016-06-08] MEDS: LIPASE/PROTEASE/AMYLASE (24,000/76,000/120,000) CAP PO SCH ×2 (18:00→21:00)
[2016-06-08] MEDS ORDERED: FERROUS FUMARATE 27 MG PO SCH (18:45)
[2016-06-08] MEDS ORDERED: ZINC 50 MG PO SCH (18:45)
[2016-06-08] MEDS ORDERED: NON-FORMULARY DRUG (Biotin 10 MG) PO SCH (18:45)
--- NOTE | 2016-06-08 19:46 | EKG ---
Date Performed: 06/08/2016 Time Performed: 05:35:37 PTAGE: 71 years EKG: SINUS TACHYCARDIA BORDERLINE LEFT AXIS DEVIATION LOW QRS VOLTAGE IN PRECORDIAL LEADS ABNORM AL RHYTHM ECG NO PREVIOUS TRACING DOCTOR: Lilian Sauer Interpretating Date/Time 06/08/2016 19:45:54
[2016-06-08] MEDS: MULTIVITAMIN HEMATINIC THERAPEUTIC TAB PO SCH (22:02)
[2016-06-08] MEDS: ATORVASTATIN 40 MG TAB PO SCH (22:02)
[2016-06-08] MEDS: CHOLECALCIFEROL (VIT D3) 1000 UNIT TAB PO SCH (22:02)
[2016-06-09] VITALS (19 sets, daily range): BP systolic 106–136; BP diastolic 56–84; PULSE 81–112; RESP 16–22; TEMP 96.2–98.3; O2SAT 93–97
[2016-06-09] MEDS: RESP: ALBUTEROL 2.5 MG/IPRATROPIUM 0.5 MG NEB (SCH) NEB ×3 (00:14→07:39)
[2016-06-09] MEDS: methylPREDNISolone SOD SUCC 125 MG/2 ML VIAL IV PUSH SCH ×2 (02:59→05:00)
[2016-06-09] MEDS ORDERED: AZITHROMYCIN INJ 500 MG in SODIUM CHLOR 0.9% 250 ML INJ 250 ML IV SCH (05:00)
[2016-06-09] MEDS: cefTRIAXone INJ 1,000 MG in SODIUM CHLORIDE 0.9% INJ 100 ML IV SCH (05:00)
[2016-06-09 05:09] LABS: HEMATOCRIT 33.3 % (39.0-51.0); MEAN CELL VOLUME 92.1 FL (80.0-100.0); MEAN CORPUSCULAR HEMOGLOBIN 31.4 PG (27.0-34.0); MEAN CORPUSCULAR HGB CONC 34.2 % (32.0-36.0); PLATELET COUNT 224 TH/MM3 (150-450); RED BLOOD COUNT 3.62 MIL/MM3 (4.50-5.90); REVIEW FLAG FINAL
[2016-06-09 05:31] LABS: BICARBONATE 26.3 MEQ/L (21.0-32.0); POTASSIUM 4.1 MEQ/L (3.5-5.1)
[2016-06-09] MEDS: ENOXAPARIN SODIUM 40 MG/0.4 ML SYRINGE SQ SCH (08:00)
[2016-06-09] MEDS: LIPASE/PROTEASE/AMYLASE (24,000/76,000/120,000) CAP PO SCH ×5 (09:00→20:57)
[2016-06-09] MEDS: SODIUM CHLORIDE 0.9% FLUSH 5 ML FLUSH FLUSH SCH ×2 (09:00→20:57)
[2016-06-09] MEDS: ASPIRIN EC 81 MG TABEC PO SCH (09:43)
[2016-06-09] MEDS: CYANOCOBALAMIN 1,000 MCG TAB PO SCH (09:43)
[2016-06-09] MEDS: CHOLECALCIFEROL (VIT D3) 1000 UNIT TAB PO SCH (09:43)
[2016-06-09] MEDS: MULTIVITAMIN HEMATINIC THERAPEUTIC TAB PO SCH (10:14)
--- NOTE | 2016-06-09 10:59 | HHI.PR ---
Subjective Remarks Follow-up community-acquired pneumonia 06/09/16-patient seen and examined, reports some improvement of shortness of breath. Currently afebrile. Had one episode of chest pain after treatment with DuoNeb this morning. However resolved. Objective Vitals Vital Signs Date Time Temp Pulse Resp B/P Pulse Ox O2 Delivery O2 Flow Rate FiO2 06/09/16 08:00 98.0 105 16 136/69 95 06/09/16 07:41 94 21 06/09/16 06:00 82 06/09/16 05:26 96.5 107 22 109/65 93 06/09/16 05:00 109 06/09/16 04:00 92 06/09/16 03:00 81 06/09/16 03:00 98.3 81 18 106/56 93 06/09/16 00:15 93 06/08/16 23:00 98.4 95 18 109/59 94 06/08/16 23:00 95 06/08/16 20:51 93 21 06/08/16 19:00 98.7 93 18 105/57 94 06/08/16 19:00 93 06/08/16 18:00 97 06/08/16 17:00 108 06/08/16 16:00 84 06/08/16 15:00 97 06/08/16 15:00 98.5 95 18 130/70 98 06/08/16 13:44 98.4 95 18 135/76 95 06/08/16 12:39 108 18 118/61 99 Nasal Cannula 2 I/O 06/08/16 06/08/16 06/08/16 06/09/16 06/09/16 06/09/16 07:00 15:00 23:00 07:00 15:00 23:00 Intake Total 690 ml 1470 ml Output Total 650 ml 700 ml Balance 40 ml 770 ml Intake Oral 690 ml 440 ml IV Total 1030 ml Output Urine Total 650 ml 700 ml Stool Total 0 ml Result Diagram: 06/09/1644106/09/[address] Angiography 06/08/16626 Signed Impressions: Service Date/Time: Wednesday, June 08, 2016 06:55 - CONCLUSION: 1. There is no evidence for PE for technique. 2. Right lung pneumonia. 3. Hiatal hernia and a right adrenal mass which is nonspecific. Sherrill Bah MD Chest X-Ray 06/08/16 0537 Signed Impressions: Service Date/Time: Wednesday, June 08, 2016 06:30 - CONCLUSION: Large area of right mid to upper lung consolidation. Stuart Santos MD Objective Remarks GENERAL: NAD SKIN: Warm and dry. HEAD: Normocephalic. EYES: No scleral icterus. No injection or drainage. NECK: Supple, trachea midline. No JVD or lymphadenopathy. CARDIOVASCULAR: Regular rate and rhythm without murmurs, gallops, or rubs. RESPIRATORY: Breath sounds equal bilaterally. No accessory muscle use.+crackles at the bases GASTROINTESTINAL: Abdomen soft, non-tender, nondistended. MUSCULOSKELETAL: No cyanosis, or edema. BACK: Nontender without obvious deformity. No CVA tenderness. A/P Problem List: (1) Community acquired pneumonia ICD Code: J18.9 Status: Acute (2) SIRS (systemic inflammatory response syndrome) ICD Code: R65.10 Status: Acute (3) Hypoxia ICD Code: R09.02 Status: Acute (4) Sepsis ICD Code: A41.9 Status: Acute Assessment and Plan 71-year-old man with Right upper and middle lobe PNA: CTA with finding of right lung pneumonia, currently on azithromycin and Rocephin IV. Sepsis: -+ tachycardia and fever. + infectious source PNA. -see treatment as above. -continue to monitor clinically. Questionable COPD Treat the PNA, continue schedule solumedrol and duonebs. Taper steroid and continue with antibiotics, long-acting beta agonist and maintain oxygen saturation above 92% right adrenal mass -incidental finding on CT scan. -can be worked up as outpatient. CAD -Continue home medication. History of chronic pancreatitis: Continue with Creon DVT -Michael Mckinney MD Jun 09, 2016 10:59
[2016-06-09] MEDS ORDERED: RESP: ALBUTEROL 2.5 MG/IPRATROPIUM 0.5 MG NEB (PRN) NEB (11:00)
--- NOTE | 2016-06-09 13:45 | EKG ---
Date Performed: 06/09/2016 Time Performed: 08:43:20 PTAGE: 71 years EKG: Sinus tachycardia with PAC(s) Normal ECG except for rate PREVIOUS TRACING : 06/08/2016 05.35 DOCTOR: Bong Arechiga Interpretating Date/Time 06/09/2016 13:43:36
[2016-06-09] MEDS ORDERED: RESP: ALBUTEROL 2.5 MG/IPRATROPIUM 0.5 MG NEB (SCH) NEB (14:00)
[2016-06-09] MEDS: ATORVASTATIN 40 MG TAB PO SCH (20:54)
[2016-06-09] MEDS: BUDESONIDE-FORMOTEROL 160/4.5 MCG INHALER INH SCH (20:56)
[2016-06-10] VITALS (9 sets, daily range): BP systolic 127–153; BP diastolic 70–83; PULSE 67–91; RESP 18–20; TEMP 97.7–101; O2SAT 92–97
[2016-06-10] MEDS: cefTRIAXone INJ 1,000 MG in SODIUM CHLORIDE 0.9% INJ 100 ML IV SCH (05:31)
[2016-06-10] MEDS: RESP: IPRATROPIUM 0.5 MG/2.5 ML NEB NEB PRN ×3 (07:41→22:21)
[2016-06-10] MEDS: ASPIRIN EC 81 MG TABEC PO SCH (08:53)
[2016-06-10] MEDS: ENOXAPARIN SODIUM 40 MG/0.4 ML SYRINGE SQ SCH (08:53)
[2016-06-10] MEDS: MULTIVITAMIN HEMATINIC THERAPEUTIC TAB PO SCH (08:53)
[2016-06-10] MEDS: CYANOCOBALAMIN 1,000 MCG TAB PO SCH (08:53)
[2016-06-10] MEDS: CHOLECALCIFEROL (VIT D3) 1000 UNIT TAB PO SCH (08:54)
[2016-06-10] MEDS: LIPASE/PROTEASE/AMYLASE (24,000/76,000/120,000) CAP PO SCH ×4 (08:54→19:49)
[2016-06-10] MEDS: SODIUM CHLORIDE 0.9% FLUSH 5 ML FLUSH FLUSH SCH ×2 (08:55→19:49)
[2016-06-10] MEDS: BUDESONIDE-FORMOTEROL 160/4.5 MCG INHALER INH SCH ×2 (08:55→19:49)
[2016-06-10] MEDS: TIOTROPIUM BROMIDE 18 MCG INH INH SCH (08:55)
[2016-06-10] MEDS: predniSONE 10 MG TAB PO SCH (09:57)
[2016-06-10] MEDS: AZITHROMYCIN 250 MG TAB PO SCH (09:57)
--- NOTE | 2016-06-10 12:41 | HHI.PR ---
Subjective Remarks Follow-up community-acquired pneumonia 06/09/16-patient seen and examined, reports some improvement of shortness of breath. Currently afebrile. Had one episode of chest pain after treatment with DuoNeb this morning. However resolved. 06/10/16-patient seen and examined, MAXIMUM TEMPERATURE 101, patient states he is not feeling well today. Worsening leukocytosis Objective Vitals Vital Signs Date Time Temp Pulse Resp B/P Pulse Ox O2 Delivery O2 Flow Rate FiO2 06/10/16 12:00 101.0 84 20 149/78 95 06/10/16 08:00 99.2 86 18 153/80 92 06/10/16 07:41 94 21 06/10/16 04:00 97.7 72 18 142/83 95 06/10/16 00:35 97.8 78 20 134/79 95 06/09/16 21:35 21 06/09/16 20:00 96.2 91 20 134/84 96 06/09/16 17:00 82 06/09/16 16:00 98.2 86 16 122/76 97 06/09/16 16:00 86 06/09/16 15:00 84 06/09/16 14:00 82 06/09/16 13:00 96 I/O 06/09/16 06/09/16 06/09/16 06/10/16 06/10/16 06/10/16 07:00 15:00 23:00 07:00 15:00 23:00 Intake Total 1470 ml 960 ml 1632 ml 480 ml Output Total 700 ml 800 ml 375 ml 900 ml Balance 770 ml 160 ml 1257 ml -420 ml Intake Oral 440 ml 960 ml 480 ml IV Total 1030 ml 1632 ml Output Urine Total 700 ml 800 ml 375 ml 900 ml Stool Total 0 ml # Bowel Movements 1 1 Result Diagram: 06/09/16 0442 06/09/16 0442 Objective Remarks GENERAL: NAD SKIN: Warm and dry. HEAD: Normocephalic. EYES: No scleral icterus. No injection or drainage. NECK: Supple, trachea midline. No JVD or lymphadenopathy. CARDIOVASCULAR: Regular rate and rhythm without murmurs, gallops, or rubs. RESPIRATORY: Breath sounds equal bilaterally. No accessory muscle use.+crackles at the bases GASTROINTESTINAL: Abdomen soft, non-tender, nondistended. MUSCULOSKELETAL: No cyanosis, or edema. BACK: Nontender without obvious deformity. No CVA tenderness. A/P Problem List: (1) Community acquired pneumonia ICD Code: J18.9 Status: Acute (2) SIRS (systemic inflammatory response syndrome) ICD Code: R65.10 Status: Acute (3) Hypoxia ICD Code: R09.02 Status: Acute (4) Sepsis ICD Code: A41.9 Status: Acute Assessment and Plan 71-year-old man with Right upper and middle lobe PNA: CTA with finding of right lung pneumonia, currently on azithromycin and Rocephin IV. Repeat chest x-ray in a.m. Sepsis: -+ tachycardia and fever. + infectious source PNA. -see treatment as above. -continue to monitor clinically. Leukocytosis: Worsening, monitor CBC and may repeat chest x-ray in the a.m. Questionable COPD Treat the PNA, continue schedule steroid and Duonebs. Taper steroid and continue with antibiotics, long-acting beta agonist and maintain oxygen saturation above 92% right adrenal mass -incidental finding on CT scan. -can be worked up as outpatient. CAD -Continue home medication. History of chronic pancreatitis: Continue with Shantion DVT -Michael Mckinney MD Jun 10, 2016 12:41
[2016-06-10] MEDS: ATORVASTATIN 40 MG TAB PO SCH (19:48)
[2016-06-11] VITALS: BP 129/65; PULSE 68; RESP 18; TEMP 97.8; O2SAT 95
[2016-06-11 04:00] VITALS: BP 142/79; PULSE 76; RESP 18; TEMP 98; O2SAT 96
--- NOTE | 2016-06-11 04:59 | RADRPT ---
EXAM DATE/TIME: 06/11/2016 03:05 [facility] COMPARISON: CHEST SINGLE AP, June 08, 2016, 6:30. CT PULMONARY ANGIOGRAM, June 08, 2016, 6:55. INDICATIONS : Shortness of breath, possible pulmonary disease. MEDICAL HISTORY : None. SURGICAL HISTORY : None. ENCOUNTER: Subsequent ACUITY: 2 days PAIN SCORE: 0/10 LOCATION: Bilateral chest FINDINGS: A single view of the chest demonstrates consolidation in the right upper lobe similar to June 08 ere is ill-defined airspace disease at both lung bases as well. Probable trace pleural fluid. No pneu mothorax. CONCLUSION: 1. Persistent right upper lobe consolidation. Patchy airspace disease also present at the bases. Melvin Benites MD on June 11, 2016 at 4:56 Board Certified Radiologist. This report was verified electronically.
[2016-06-11] MEDS: cefTRIAXone INJ 1,000 MG in SODIUM CHLORIDE 0.9% INJ 100 ML IV SCH (05:13)
[2016-06-11 06:27] LABS: AUTOMATED NEUTROPHIL # 11.4 TH/MM3 (1.8-7.7); BASOPHIL % 0.1 % (0.0-2.0); EOSINOPHIL # 0.1 TH/MM3 (0-0.4); HEMATOCRIT 34.5 % (39.0-51.0); HEMO FLAGS DIFF FINAL; LYMPH % 7.6 % (9.0-44.0); MEAN CELL VOLUME 92.3 FL (80.0-100.0); MEAN CORPUSCULAR HEMOGLOBIN 31.2 PG (27.0-34.0); MEAN CORPUSCULAR HGB CONC 33.8 % (32.0-36.0); MONO % 4.7 % (0.0-8.0); NEUT % 86.6 % (16.0-70.0); PLATELET COUNT 237 TH/MM3 (150-450); RED BLOOD COUNT 3.73 MIL/MM3 (4.50-5.90); RED CELL DISTRIBUTION WIDTH 14.3 % (11.6-17.2); WHITE BLOOD COUNT 13.2 TH/MM3 (4.0-11.0)
[2016-06-11 06:54] VITALS: PULSE 70
[2016-06-11 07:41] VITALS: O2SAT 93
[2016-06-11 08:00] VITALS: BP 117/65; PULSE 83; RESP 16; TEMP 98.8; O2SAT 97
[2016-06-11] MEDS: ENOXAPARIN SODIUM 40 MG/0.4 ML SYRINGE SQ SCH (08:00)
[2016-06-11] MEDS ORDERED: ASPI81TA11 PO (08:50)
[2016-06-11] MEDS ORDERED: IPRA17I INH (08:50)
[2016-06-11] MEDS ORDERED: AZIT250T3 PO (08:50)
[2016-06-11] MEDS ORDERED: PRED10 PO (08:50)
[2016-06-11] MEDS ORDERED: SPIRCAP INH (08:50)
[2016-06-11] MEDS ORDERED: SYMB160A INH (08:50)
--- NOTE | 2016-06-11 08:57 | HHI.PR ---
Subjective Remarks Follow-up community-acquired pneumonia 06/09/16-patient seen and examined, reports some improvement of shortness of breath. Currently afebrile. Had one episode of chest pain after treatment with DuoNeb this morning. However resolved. 06/10/16-patient seen and examined, MAXIMUM TEMPERATURE 101, patient states he is not feeling well today. Worsening leukocytosis 06/11/16-patient seen and examined, currently afebrile reports significant improvement of shortness of breath. Would like to be discharged home. Objective Vitals Vital Signs Date Time Temp Pulse Resp B/P Pulse Ox O2 Delivery O2 Flow Rate FiO2 06/11/16 07:41 93 21 06/11/16 04:00 98.0 76 18 142/79 96 06/11/16 00:00 97.8 68 18 129/65 95 06/10/16 22:23 96 21 06/10/16 20:00 67 20 127/70 97 06/10/16 16:00 98.6 91 18 134/71 93 06/10/16 12:00 101.0 84 20 149/78 95 I/O 06/10/16 06/10/16 06/10/16 06/11/16 06/11/16 06/11/16 07:00 15:00 23:00 07:00 15:00 23:00 Intake Total 480 ml 480 ml Output Total 900 ml 1000 ml Balance -420 ml -520 ml Intake Oral 480 ml 480 ml Output Urine Total 900 ml 1000 ml # Bowel Movements 1 Result Diagram: 06/11/16 0540 06/09/16 0442 Imaging Last Impressions Chest X-Ray 06/11/16 0600 Signed Impressions: Service Date/Time: Saturday, June 11, 2016 03:05 - CONCLUSION: 1. Persistent right upper lobe consolidation. Patchy airspace disease also present at the bases. Melvin Benites MD CT Angiography 06/08/16 0627 Signed Impressions: Service Date/Time: Wednesday, June 08, 2016 06:55 - CONCLUSION: 1. There is no evidence for PE for technique. 2. Right lung pneumonia. 3. Hiatal hernia and a right adrenal mass which is nonspecific. Sherrill Bah MD Objective Remarks GENERAL: NAD SKIN: Warm and dry. HEAD: Normocephalic. EYES: No scleral icterus. No injection or drainage. NECK: Supple, trachea midline. No JVD or lymphadenopathy. CARDIOVASCULAR: Regular rate and rhythm without murmurs, gallops, or rubs. RESPIRATORY: Breath sounds equal bilaterally. No accessory muscle use. GASTROINTESTINAL: Abdomen soft, non-tender, nondistended. MUSCULOSKELETAL: No cyanosis, or edema. BACK: Nontender without obvious deformity. No CVA tenderness. Procedures none A/P Problem List: (1) Community acquired pneumonia ICD Code: J18.9 Status: Acute (2) SIRS (systemic inflammatory response syndrome) ICD Code: R65.10 Status: Acute (3) Hypoxia ICD Code: R09.02 Status: Acute (4) Sepsis ICD Code: A41.9 Status: Acute Assessment and Plan 71-year-old man with Right upper and middle lobe PNA: CTA with finding of right lung pneumonia, patient clinically improving and currently on azithromycin and Rocephin IV. Sepsis: Resolved. All culture reports NTD + infectious source PNA. -see treatment as above. -continue to monitor clinically. Leukocytosis: Improving Questionable COPD Treat the PNA, continue schedule steroid and Duonebs. Taper steroid and continue with antibiotics, long-acting beta agonist and maintain oxygen saturation above 92% Will need outpatient PFTs right adrenal mass -incidental finding on CT scan. -can be worked up as outpatient. CAD -Continue home medication. History of chronic pancreatitis: Continue with Creon DVT -Michael Mckinney MD Jun 11, 2016 08:57
--- NOTE | 2016-06-11 08:59 | HHI.DS ---
Discharge Summary Admission Date Jun 08, 2016 at 07:42 Discharge Date: Jun 11, 2016 Admitting Diagnosis multilobar pneumonia, hypoxia, tachycardia, hemoptysis (1) Community acquired pneumonia ICD Code: J18.9 (2) SIRS (systemic inflammatory response syndrome) ICD Code: R65.10 (3) Hypoxia ICD Code: R09.02 (4) Sepsis ICD Code: A41.9 Procedures none Brief History - From Admission 71 y/o M with PMHx of CAD s/p stent placement who p/w SOB and fever X 1 day. Patient stated that he drove down from [place] for bike week and stayed in last night. At 3am he woke up with SOB and wheezing. He stated a friend of his who is a nurse heard him wheezing and he felt warm so she gave him Tylenol. They then went to the ED. Patient stated 2 weeks prior he had the flu and he was treated for that. He stated he thought he did well after that but felt fatigue the past few days. No other complaints. No hx of COPD. Patient smoked 2-3 PPD for 20 years but stopped tobacco use 11 years ago when he had stent placement. + productive cough. CBC/BMP: 06/11/16 0540 06/09/16 0442 Significant Findings Laboratory Tests Test 06/09/16 06/11/16 04:42 05:40 White Blood Count 17.0 TH/MM3 13.2 TH/MM3 (4.0-11.0) (4.0-11.0) Red Blood Count 3.62 MIL/MM3 3.73 MIL/MM3 (4.50-5.90) (4.50-5.90) Hemoglobin 11.4 GM/DL 11.7 GM/DL (13.0-17.0) (13.0-17.0) Hematocrit 33.3 % 34.5 % (39.0-51.0) (39.0-51.0) Random Glucose 155 MG/DL (74-106) Calcium Level 8.3 MG/DL (8.5-10.1) Neutrophils (%) (Auto) 86.6 % (16.0-70.0) Lymphocytes (%) (Auto) 7.6 % (9.0-44.0) Neutrophils # (Auto) 11.4 TH/MM3 (1.8-7.7) Imaging Last Impressions Chest X-Ray 06/11/16 0600 Signed Impressions: Service Date/Time: Saturday, June 11, 2016 03:05 - CONCLUSION: 1. Persistent right upper lobe consolidation. Patchy airspace disease also present at the bases. Melvin Benites MD CT Angiography 06/08/16 0627 Signed Impressions: Service Date/Time: Wednesday, June 08, 2016 06:55 - CONCLUSION: 1. There is no evidence for PE for technique. 2. Right lung pneumonia. 3. Hiatal hernia and a right adrenal mass which is nonspecific. Sherrill Bah MD PE at Discharge GENERAL: NAD SKIN: Warm and dry. HEAD: Normocephalic. EYES: No scleral icterus. No injection or drainage. NECK: Supple, trachea midline. No JVD or lymphadenopathy. CARDIOVASCULAR: Regular rate and rhythm without murmurs, gallops, or rubs. RESPIRATORY: Breath sounds equal bilaterally. No accessory muscle use. GASTROINTESTINAL: Abdomen soft, non-tender, nondistended. MUSCULOSKELETAL: No cyanosis, or edema. BACK: Nontender without obvious deformity. No CVA tenderness. Hospital Course Patient started on IV antibiotics including Rocephin and azithromycin were monitored how culture. He was also diagnosed with COPD for which he was started on long-acting beta agonist, steroid taper and provided when necessary and schedule DuoNeb with improvement of breathing treatment. He was continued on his medications for other chronic medical conditions. Vitals were monitor and chest x-ray was repeated prior to discharge. DVT and GI prophylaxis were provided. Recommend outpatient PFTs and follow-up incidental finding of adrenal mass Pt Condition on Discharge: Stable Discharge Disposition: Discharge Home Discharge Time: <= 30 minutes Discharge Instructions DIET: Follow Instructions for: Heart Healthy Diet Activities you can perform: Regular-No Restrictions Follow up Referrals: PCP Follow-up - 1 Week New Medications: Azithromycin (Azithromycin) 250 Mg Tab 250 MG PO DAILY Infection #4 Ref 0 TAB Ipratropium HFA 12.9 GM Inh (Atrovent HFA 12.9 GM Inh) 17 Mcg/Act Aer 2 PUFF INH QID Breathing Treatment #1 Ref [address] (Aspirin EC) 81 Mg Tabdr 81 MG PO DAILY Prevent Blood Clot #30 TAB Budesonide-Formoterol Inh (Symbicort Inh) 160-4.5 Mcg/Act Aero 2 PUFF INH Q12HR Breathing Treatment #1 Ref 1 INHALER Prednisone (Prednisone) 10 Mg Tab 10 MG PO DAILY Infection #3 TAB Tiotropium Inh (Spiriva Handihaler) 18 Mcg Cap 18 MCG INH DAILY Breathing Treatment #1 Ref 1 CAP Continued Medications: Acetaminophen (Tylenol) 325 Mg Tab 650 MG PO Q4H PRN FEVER Ref 0 TAB Biotin (Biotin) 10 Mg Tab 10 MG PO DAILY Nutritional Supplement #1 Ref 0 BOTTLE Cholecalciferol (D3 Super Strength) 2,000 Unit Cap 2000 UNITS PO DAILY Nutritional Supplement #30 Ref 0 CAP Ferrous Fumarate (Iron) 18 Mg Tab 27 MG PO DAILY Nutritional Supplement Ref 0 TAB Methylcobalamin ([id number]) 1 Mg Chew 1 MG PO DAILY Nutritional Supplement Ref 0 TAB Multiple Vitamins W/ Minerals (Centrum Silver) 1 Tab 1 TAB PO DAILY Nutritional Supplement Ref 0 TAB Pancrelipase (Creon) 24,000-76,000-120,000 Units Cap 1 CAP PO QIDPC Digestive Aid #90 Ref 0 CAP Pancrelipase (Creon) 24,000-76,000-120,000 Units Cap 1 CAP PO PRN WITH SNACKS #90 Ref 0 CAP Simvastatin (Simvastatin) 40 Mg Tab 40 MG PO HS Cholesterol Management #30 Ref 0 TAB Zinc (Zinc) 50 Mg Tab 50 MG PO DAILY Nutritional Supplement Ref 0 TAB Michael Alves MD Jun 11, 2016 08:59
[2016-06-11] MEDS: LIPASE/PROTEASE/AMYLASE (24,000/76,000/120,000) CAP PO SCH (09:00)
[2016-06-11] MEDS: predniSONE 10 MG TAB PO SCH (09:16)
[2016-06-11] MEDS: CHOLECALCIFEROL (VIT D3) 1000 UNIT TAB PO SCH (09:16)
[2016-06-11] MEDS: MULTIVITAMIN HEMATINIC THERAPEUTIC TAB PO SCH (09:16)
[2016-06-11] MEDS: AZITHROMYCIN 250 MG TAB PO SCH (09:16)
[2016-06-11] MEDS: ASPIRIN EC 81 MG TABEC PO SCH (09:16)
[2016-06-11] MEDS: CYANOCOBALAMIN 1,000 MCG TAB PO SCH (09:16)
[2016-06-11] MEDS: TIOTROPIUM BROMIDE 18 MCG INH INH SCH (09:17)
[2016-06-11] MEDS: SODIUM CHLORIDE 0.9% FLUSH 5 ML FLUSH FLUSH SCH (09:17)
[2016-06-11] MEDS: BUDESONIDE-FORMOTEROL 160/4.5 MCG INHALER INH SCH (09:17)
== END 2016-06-11 11:59 | disposition home or self-care (01) | DRG 871 ==
LOC: NEPE 05:25 → NEDA 07:42 → HCIS 13:26 → HCPC 06-09 05:06
PROVIDERS: ADMIT Hospitalist; ATTEND Hospitalist
DX: A41.9 Sepsis, unspecified organism (principal); J18.9 Pneumonia, unspecified organism; K86.1 Other chronic pancreatitis; J44.0 Chronic obstructive pulmonary disease with (acute) lower respiratory infection; I25.10 Atherosclerotic heart disease of native coronary artery without angina pectoris; E27.9 Disorder of adrenal gland, unspecified; R09.02 Hypoxemia; E78.5 Hyperlipidemia, unspecified; K44.9 Diaphragmatic hernia without obstruction or gangrene; Z87.891 Personal history of nicotine dependence; Z85.46 Personal history of malignant neoplasm of prostate; Z95.5 Presence of coronary angioplasty implant and graft; Z98.84 Bariatric surgery status
CPT/HCPCS: 36600; 71010; 71275; 80048; 80053; 81001; 82550; 82552; 82805; 83605; 83735; 83880; 84484; 85025; 85027; 85610; 85730; 87040; 87804; 93005; 94150; 94640; 94664; 96360; 96365; 96368; 96375; J0456; J0696; J1650; J2930; J7030; J7050; J7512; J7644; Q9967